=== PATIENT | female | born 1940 | race Hispanic/Latino ===

== ENCOUNTER → 2017-05-23 | Outpatient (CLI) | payer MEDICARE ==
[~2017-05-23] MED LIST: REGADENOSON 0.4 MG/5 ML PF SYG IVP SCH
== END ==
LOC: SHCH 12:30
PROVIDERS: ATTEND Internal Medicine Cardiovascular Disease
DX: I10 Essential (primary) hypertension (principal)
CPT/HCPCS: 78452; 93017; 96374; A9500 ×2; J2785

== ENCOUNTER 2024-09-04 14:53 | Emergency (ER) | payer OTHER, MEDICAID ==
[~2024-09-04] VITALS: Ht 152.4 cm; Wt 48.1 kg
--- NOTE | 2024-09-04 15:24 | ERN ---
ED Note History of Present Illness Stated Complaint: SHARP UPPER ABD PAIN Chief Complaint: Abdominal Pain Time Seen by MD: 14:56 Dictation: PATIENT IS AN 83-YEAR-OLD FEMALE WITH COMPLAINTS OF EPIGASTRIC PAIN THAT RADIATES TO UPPER BACK ONSET AFTER EATING LUNCH AT 12:30 TODAY. NO NAUSEA VOMITING NO SHORTNESS A BREATH NO ARM PAIN NO JAW PAIN. NO CAD. Allergies: Coded Allergies: codeine (Unverified Allergy, Unknown, 05/22/17) Past Medical History History: Not Applicable RN Note Reviewed/Agreed w/PFSH: Yes Review of System Dictation CONSTITUTIONAL: NEGATIVE EXCEPT FOR HPI HEAD/FACE: NEGATIVE EXCEPT FOR HPI EENT: NEGATIVE EXCEPT FOR HPI RESPIRATORY: NEGATIVE EXCEPT FOR HPI GASTROINTESTINAL/ABDOMINAL: NEGATIVE EXCEPT FOR HPI EPIGASTRIC PAIN THAT RADIATES TO THORACIC BACK GENITOURINARY: NEGATIVE EXCEPT FOR HPI MUSCULOSKELETAL: NEGATIVE EXCEPT FOR HPI INTEGUMENTARY: NEGATIVE EXCEPT FOR HPI NEUROLOGICAL/PSYCH: NEGATIVE EXCEPT FOR HPI HEMATOLOGIC/LYMPHATIC: NEGATIVE EXCEPT FOR HPI ALL SYSTEMS NEGATIVE, EXCEPT NOTED ABOVE. 13 POINT REVIEW OF SYSTEMS ASSESSED AND ALL NEGATIVE EXCEPT FOR ABOVE. Initial Vital Sign VS Vital Signs Date Time Temp Pulse Resp B/P (MAP) Pulse Ox O2 Delivery O2 Flow Rate FiO2 09/04/24 15:17 69 18 140/61 Room Air 09/04/24 17:27 98.4 99 0 21 Physical Exam Dictation VITAL SIGNS REVIEWED GENERAL APPEARANCE: ALERT, ORIENTED X 3, MILD ACUTE DISTRESS, WELL DEVELOPED, NOURISHED. HEAD AND FACE: NON-TRAUMATIC. EYES: PERRL, PINK CONJUNCTIVAS, EYELID NO TRAUMA, ANTERIOR CHAMBER WITH ARCUS SENILIS. EARS: PINNAS INTACT AND NO SIGNS OF TRAUMA OR ERYTHEMA EAR CANALS CLEAR AND NO DISCHARGE TM NO ERYTHEMA NOSE: NO DISCHARGE, NO BLEEDING. OROPHARYNX: MOUTH NORMAL, TONGUE PINK, PHARYNX CLEAR,NO ERYTHEMA, TONSILS NO EXUDATES, NO ABSCESSES NOTED, MUCOUS MEMBRANE MOIST NECK: SUPPLE, NON-TENDER, NO THYROMEGALY, NO MASSES, NO JVD, NO BRUITS BREAST:DEFERRED CHEST:NO TENDERNESS, NO CREPITUS, NO PARADOXICAL MOVEMENT, NO RETRACTIONS LUNGS:CLEAR, WELL-VENTILATED, SYMMETRIC, NO RALES, NO WHEEZING, NO RHONCHI, NO STRIDOR, GOOD BREATH SOUNDS BILATERALLY HEART: REGULAR RATE, REGULAR RHYTHM, NO MURMUR, NO GALLOPS VASCULAR: NO PERIPHERAL EDEMA, ABDOMEN: SOFT, POSITIVE BOWEL SOUNDS, NONDISTENDED, NO GUARDING, NONTENDER, NO REBOUND, NO MASSES NO HEPATOMEGALY, NO SPLENOMEGALY, NO MENA'S SIGN, NO HERNIAS. NO EPIGASTRIC TENDERNESS RECTAL: DEFERRED GENITAL: DEFERRED NEUROLOGICAL: NORMAL SPEECH, MOTOR FUNCTION INTACT, SENSORY FUNCTION INTACT MUSCULOSKELETAL: NECK NONTENDER, FULL RANGE OF MOTION, BACK NONTENDER, FULL RANGE OF MOTION, EXTREMITIES: NONTENDER, FULL RANGE OF MOTION SKIN: COLOR PINK, DRY, NO TURGOR, NO RASH, NO LACERATIONS, NO ABRASIONS, NO CONTUSIONS. LYMPHATIC: DEFERRED Results (Laboratory/Radiology) Laboratory/Radiology Laboratory Tests Test 09/04/24 15:54 White Blood Count 14.6 K/uL (4.8-10.8) H Red Blood Count 3.41 MIL/uL (4.00-5.50) L Hemoglobin 10.5 g/dL (12.0-16.0) L Hematocrit 32.3 % (36-48) L Mean Corpuscular Volume 94.7 fL (79-99) Mean Corpuscular Hemoglobin 30.8 pg (27.0-33.0) Mean Corpuscular Hemoglobin Concent 32.5 g/dL (32.0-36.0) Red Cell Distribution Width 13.1 % (11.0-15.5) Platelet Count 275 K/uL (130-400) Mean Platelet Volume 8.7 fL (7.5-10.5) Immature Granulocyte % (Auto) 0.4 % (0-1) Neutrophils (%) (Auto) 87.4 % (40.0-77.0) H Lymphocytes (%) (Auto) 7.0 % (21.0-51.0) L Monocytes (%) (Auto) 4.9 % (3.0-13.0) Eosinophils (%) (Auto) 0.1 % (0.0-8.0) Basophils (%) (Auto) 0.2 % (0.0-5.0) Neutrophils # (Auto) 12.7 K/uL (1.8-7.7) H Lymphocytes # (Auto) 1.0 K/uL (1.0-4.8) Monocytes # (Auto) 0.7 K/uL (0.1-1.0) Eosinophils # (Auto) 0.02 K/uL (0.00-0.70) Basophils # (Auto) 0.03 K/uL (0.00-0.20) Absolute Immature Granulocyte (auto 0.06 K/uL (0-1) Nucleated Red Blood Cells 0.0 % (0.0-0.19) White Cell Morphology Comment See comments Sodium Level 140 mmol/L (136-145) Potassium Level 4.0 mmol/L (3.5-5.1) Chloride Level 102 mmol/L (101-111) Carbon Dioxide Level 31 mmol/L (21-32) Blood Urea Nitrogen 21 mg/dL (7-18) H Creatinine 0.9 mg/dL (0.5-1.0) Glomerular Filtration Rate Calc 63 mL/min (>90) Random Glucose 146 mg/dL (70-105) H Total Calcium 9.0 mg/dL (8.5-10.1) Troponin I High Sensitivity 5 ng/L (4-50) Lipase 38 U/L (16-77) Labs Reviewed?: Yes EKG Comment: EKG NORMAL SINUS RHYTHM/HEART RATE 68/AXIS NORMAL/NO ECTOPY ED Course ED Course Orders Procedure Category Date Status Time Cbc With Differential LAB 09/04/24 Complete 15:22 Troponin I High LAB 09/04/24 Complete Sensitivity 15:22 Urinalysis Profile LAB 09/04/24 Logged 15:22 12 Lead Ekg Tracing- EKG 09/04/24 Logged Technical 15:22 Famotidine 20mg Vial PHA 09/04/24 Complete (Pepcid 20mg Vial) 15:30 Lipase LAB 09/04/24 Complete 15:22 Basic Metabolic Panel LAB 09/04/24 Complete 15:22 Lidocaine Hcl 2% PHA 09/04/24 Complete Viscous (Lidocaine Hcl 17:00 Mag/Alum/Simeth 30ml PHA 09/04/24 Complete (Maalox Plus 30ml) 17:00 Dicyclomine Hcl PHA 09/04/24 Complete (Bentyl 10mg/5ml 17:00 Current Medications Medications (Trade) Dose Ordered Sig/Neelima Route PRN Reason Start Time Stop Time Status Last Admin Dose Admin Al Hydroxide/Mg Hydroxide (MAALox PLUS 30ML) 30 ml ONCE ONCE PO 09/04/24 17:00 09/04/24 17:11 DC 09/04/24 17:41 Dicyclomine HCl (Bentyl 10mg/5ml Syrup) 10 mg ONCE ONCE PO 09/04/24 17:00 09/04/24 17:11 DC 09/04/24 17:39 Famotidine (Pepcid 20mg Vial) 20 mg ONCE ONCE IV 09/04/24 15:30 09/04/24 15:31 DC 09/04/24 16:05 Lidocaine HCl (Lidocaine HCl 2% Viscous) 10 ml ONCE ONCE PO 09/04/24 17:00 09/04/24 17:11 DC 09/04/24 17:39 Vital Signs Date Time Temp Pulse Resp B/P (MAP) Pulse Ox O2 Delivery O2 Flow Rate FiO2 09/04/24 17:27 98.4 72 16 143/64 99 Room Air* 0 21 09/04/24 15:17 69 18 140/61 Room Air 1845/HAS COMPLETELY RESOLVED PATIENT WISHES TO GO HOME. SHE DOES NOT WISH TO BE ADMITTED TO THE HOSPITAL DAUGHTER AT THE BEDSIDE AND SHE AGREES. I ADVISED DOORS THIS WAS ACUTE GASTRITIS, TO AVOID SPICY FOODS, ALCOHOL, TOBACCO, CITRUS FRUIT JUICE, BUBBLY DRINKS ICE TEA OR COFFEE. I WE WILL SEND HER HOME WITH CARAFATE AND OMEPRAZOLE HEART Score Response (Comments) Value Age: > 65yrs (+2) 2 Risk Factors: 1-2 risk factors (+1) 1 Total 3 Medical Decision Making MDM MDM: DIFFERENTIAL DIAGNOSIS: ACS/AMI/ELECTROLYTE IMBALANCE/DEHYDRATION/GASTRITIS/PANCREATITIS RATIONALE: TESTS CONSIDERED AND ORDERED SECONDARY TO SHARED DECISION MAKING INCLUDE: EKG/LABS PREVIOUS OUTSIDE RECORDS REVIEWED: OLD ER VISITS. RISK OF COMPLICATION AND/OR MORBIDITY OR MORTALITY OF PATIENT MANAGEMENT: NONE MEDICATIONS-PER MEDICATION RECONCILIATION NEED FOR HOSPITALIZATION: PATIENT DOES NOT MEET CRITERIA FOR HOSPITALIZATION. PATIENT REFUSED ADMISSION AT THIS TIME. WANTS TO GO HOME AND DAUGHTER AT BEDSIDE AGREES NEED FOR EMERGENCY MAJOR/MINOR SURGERY: NO THERE ARE NO SOCIAL CONCERNS WITH THIS PATIENT. PRESCRIPTION DRUG MANAGEMENT CARAFATE AND OMEPRAZOLE PRESCRIPTIONS WILL INCLUDE SYMPTOMATIC CARE PATIENT'S PRIOR EXTERNAL MEDICAL RECORDS FROM OTHER ER VISITS WERE REVIEWED BY ME INDICATED. PRIOR TESTING AND RESULTS FROM PREVIOUS VISITS WERE REVIEWED. PRIOR TESTS WERE TAKEN INTO ACCOUNT WITH MEDICAL DECISION MAKING AND RESOURCE UTILIZATION, INDEPENDENT HISTORIAN/HISTORIANS WERE USED TO OBTAIN COMPLETE MEDICAL HISTORY. I INDEPENDENTLY INTERPRETED THE TEST THAT WERE PERFORMED, RESULTS WERE REVIEWED BY ME AND CONSIDERED FINDINGS ON RADIOLOGY IF ORDERED. MEDICAL MANAGEMENT AND EXAMINATION INTERPRETATION DISCUSSIONS WERE HAD BY ME WITH OTHER QUALIFIED HEALTHCARE PROFESSIONALS INDICATED FOR THE PATIENT'S CARE. DX & DISP Disposition: Discharge Departure Impression: Primary Impression: Acute gastritis Additional Impressions: Chronic kidney disease, stage 3, Diabetes mellitus with hyperglycemia Condition: Stable Scripts Omeprazole (Omeprazole) 40 Mg Capsule.dr 1 CAP PO DAILY for 30 Days, #30 CAP 0 Refills Prov: OPAL LOVE MONORAIL HOOKER 09/04/24 Sucralfate (Carafate) 1 Gram Tablet 1 GM PO ACHS for 10 Days, #40 TAB Prov: OPAL LOVE MONORAIL HOOKER 09/04/24 Additional Instructions: FOLLOW-UP WITH PRIMARY CARE PROVIDER IN 1 TO 2 DAYS. TAKE MEDICATIONS DIRECTED HERE IN THE EMERGENCY ROOM. OKAY TO CONTINUE HOME MEDICATIONS UNLESS OTHERWISE DISCUSSED DURING YOUR VISIT IN THE EMERGENCY ROOM TODAY. RETURN TO YOUR NEAREST EMERGENCY ROOM IF SYMPTOMS WORSEN OR IF THERE IS NO IMPROVEMENT. CALL 911 IF YOU NEED IMMEDIATE ASSISTANCE. TAKE TYLENOL OR MOTRIN [id number] NEEDED AND IF NO CONTRAINDICATIONS ARE PRESENT. INCREASE ORAL HYDRATION. A WOUND CULTURE OR URINE CULTURE WAS ORDERED HERE IN THE EMERGENCY ROOM DEPARTMENT PLEASE FOLLOW-UP WITH PRIMARY CARE PROVIDER AND ADVISE THEM TO GET REPEAT PORTS FROM OUR FACILITY. IF YOU HAD ANY JASS WRAP/SPLINTS THAT WERE APPLIED HERE, PLEASE DO NOT REMOVE THEM UNTIL YOU SEE YOUR PRIMARY CARE OR SPECIALTY. FOLLOW A BLAND DIET WITH WATER FOR FLUIDS ONLY. NO SPICY FOODS, NO BUBBLY DRINKS, NO SODA POP, NO COFFEE, NO ICE TEA, NO ALCOHOL, NO TOBACCO AND NO CITRUS FRUIT JUICE UNTIL CLEARED BY YOUR DOCTOR. TAKE CARAFATE AND OMEPRAZOLE DIRECTED. Referrals: SHIRLEY SANCHEZ MD (PCP) Time of Disposition: 18:45 I have reviewed the case, and I agree with, Diagnosis and Plan OPAL LOVE NP Sep 04, 2024 15:24
[2024-09-04 15:58] LABS: BASOPHILS # (AUTO) 0.03 K/uL (0.00-0.20); BASOPHILS % (AUTO) 0.2 % (0.0-5.0); EOSINOPHILS # (AUTO) 0.02 K/uL (0.00-0.70); EOSINOPHILS % (AUTO) 0.1 % (0.0-8.0); HEMATOCRIT 32.3 % (36-48); IMMATURE GRANULOCYTE ABSOLUTE 0.06 K/uL (0-1); MEAN CORPUSCULAR HEMOGLOBIN 30.8 pg (27.0-33.0); MEAN CORPUSCULAR HGB CONC 32.5 g/dL (32.0-36.0); MEAN CORPUSCULAR VOLUME 94.7 fL (79-99); MONOCYTES # (AUTO) 0.7 K/uL (0.1-1.0); MONOCYTES % (AUTO) 4.9 % (3.0-13.0); NEUTROPHILS # (AUTO) 12.7 K/uL (1.8-7.7); NEUTROPHILS % (AUTO) 87.4 % (40.0-77.0); PLATELET COUNT (AUTO) 275 K/uL (130-400); RED BLOOD CELL COUNT(AUTO) 3.41 MIL/uL (4.00-5.50); RED CELL DISTRIBUTION WIDTH 13.1 % (11.0-15.5); WHITE BLOOD COUNT (AUTO) 14.6 K/uL (4.8-10.8)
[2024-09-04] MEDS: FAMOTIDINE 20MG VIAL IV ONE (16:05)
[2024-09-04 16:11] LABS: CREATININE 0.9 mg/dL (0.5-1.0)
[2024-09-04 17:27] VITALS: O2SAT 99
[2024-09-04] MEDS: LIDOCAINE HCL 2% VISCOUS 15 ML UDCUP PO ONE (17:39)
[2024-09-04] MEDS: DICYCLOMINE HCL 10 MG/5 ML ML PO ONE (17:39)
[2024-09-04] MEDS: MAG/ALUM/SIMETH 30 ML UDCUP PO ONE (17:41)
[2024-09-04] MEDS ORDERED: SUCR1TAB28 PO (18:47)
[2024-09-04] MEDS ORDERED: OMEP40CA21 PO (18:47)
[2024-09-04 18:53] VITALS: BP 141/71; PULSE 70; RESP 18; TEMP 98.4
--- NOTE | 2024-09-05 06:34 | EKG ---
[facility] Test Date: 2024-09-04 Test Time: 15:53:52 Pat Name: MIC MARTINEZ Department: ED Room: Gender: F Call Center Director: [id number] : [id number] Requested By: OPAL LOVE Order Number: [id number] Reading MD: Elliott Herrera Measurements Intervals [place] Rate: 68 P: -5 OK: 186 QRS: 45 QRSD: 75 T: 6 QT: 402 QTc: 428 Interpretive Statements Sinus rhythm No previous ECG available for comparison Electronically Signed On 09-05-2024 13:55:58 CDT by Elliott Herrera Please click the below link to view image of tracing.
== END 2024-09-04 19:28 | disposition home or self-care (01) ==
LOC: EDH 14:53
DX: K29.00 Acute gastritis without bleeding (principal); E11.22 Type 2 diabetes mellitus with diabetic chronic kidney disease; E11.65 Type 2 diabetes mellitus with hyperglycemia; N18.30 Chronic kidney disease, stage 3 unspecified; Z88.5 Allergy status to narcotic agent
CPT/HCPCS: 99284; 96374; 84484; 80048; 83690; 85025; 36415; 93005; J3490